=== PATIENT | male | born 1990 | race Caucasian/White ===

== ENCOUNTER 2019-10-23 08:15 | Emergency (ER) | payer OTHER ==
[2019-10-23 09:28] LABS: HEMATOCRIT 43.5 % (37.9-51.0); HEMOGLOBIN 14.7 g/dL (13.5-17.0); MEAN CORPUSCULAR HEMOGLOBIN 29.8 pg (27.0-33.4); MEAN CORPUSCULAR HGB CONC 33.9 g/dL (32.0-36.0); MEAN CORPUSCULAR VOLUME 88 fl (80-97); PLATELET COUNT 371 10^3/uL (150-450); RED BLOOD COUNT 4.95 10^6/uL (4.35-5.55); RED CELL DISTRIBUTION WIDTH 15.7 % (11.5-14.0)
[2019-10-23 09:43] LABS: ALBUMIN 4.4 g/dL (3.5-5.0); ALKALINE PHOSPHATASE 48 U/L (38-126); ANION GAP 10 (5-19); ASPARTATE AMINO TRANSFERASE 54 U/L (17-59); BILIRUBIN,DIRECT 0.1 mg/dL (0.0-0.4); BILIRUBIN,TOTAL 0.9 mg/dL (0.2-1.3); BLOOD UREA NITROGEN 17 mg/dL (7-20); CALCIUM 9.2 mg/dL (8.4-10.2); CARBON DIOXIDE 25 mmol/L (22-30); CHLORIDE 106 mmol/L (98-107); GLUCOSE 100 mg/dL (75-110); POTASSIUM 5.1 mmol/L (3.6-5.0); TOTAL PROTEIN 7.5 g/dL (6.3-8.2)
[2019-10-23 09:46] LABS: APPEARANCE,URINE CLEAR; BILIRUBIN,URINE NEGATIVE (NEGATIVE); COLOR,URINE YELLOW; GLUCOSE, URINE NEGATIVE (NEGATIVE); KETONES,URINE NEGATIVE (NEGATIVE); LEUKOCYTE ESTERASE,URINE NEGATIVE (NEGATIVE); NITRITE,URINE NEGATIVE (NEGATIVE); PROTEIN,URINE NEGATIVE (NEGATIVE); URINE SPECIFIC GRAVITY 1.027; UROBILINOGEN,URINE NEGATIVE mg/dL (<2.0)
[2019-10-23 10:21] LABS: ABSOLUTE LYMPHOCYTES# (MANUAL) 0.5 10^3/uL (0.5-4.7); ABSOLUTE MONOCYTES # (MANUAL) 0.1 10^3/uL (0.1-1.4); BAND NEUTROPHILS % (MANUAL) 3 % (3-5); BASOPHILS % (MANUAL) 0 % (0-2); EOSINOPHILS % (MANUAL) 1 % (0-6); LYMPHOCYTES % (MANUAL) 7 % (13-45); MONOCYTES % (MANUAL) 1 % (3-13); SEGMENTED NEUTROPHILS % (MAN) 88 % (42-78); TOTAL CELLS COUNTED 100
[2019-10-23 10:22] LABS: ANISOCYTOSIS SLIGHT; PLATELET COMMENT ADEQUATE; TOXIC GRANULATION SLIGHT; TOXIC VACUOLATION PRESENT
[2019-10-23] MEDS ORDERED: NORMAL SALINE 1000 ML 1,000 ML IV ONE (10:32)
[2019-10-23] MEDS ORDERED: ONDANSETRON HCL INJ/PF 4 MG/2 ML SDV IV ONE (10:34)
--- NOTE | 2019-10-23 10:39 | ER Document Report ---
ED General - General Chief Complaint: Nausea/Vomiting/Diarrhea Stated Complaint: VOMITING,DIARRHEA Time Seen by Provider: 10/23/19 10:01 Notes: Patient is a 29-year-old white male with a past medical history of H pylori who presents to the emergency department with a chief complaint of nausea, vomiting and diarrhea that began last night. The patient reports after eating 2 corndogs he had an episode of diarrhea. He states he thought that was going to be isolated incident. He states later while sleeping he woke feeling nauseous. States he vomited x2 and then began having diarrhea again. He states the diarrhea is about once per hour since last night. States that it is now watery and yellow in color. He reports his daughter was recently sick with similar symptoms. States she is being seen by the application trainer today. He did recently come off of an airplane flight from within the [facility], no out of the country travel. Denies any possible contamination to any food or water sources. Denies any recent antibiotics or hospitalizations. TRAVEL OUTSIDE OF THE [place] IN LAST 30 DAYS: No - Related Data Allergies/Adverse Reactions: Penicillins Allergy (Verified 10/23/19 08:45) Past Medical History - Social History Smoking Status: Former Smoker Frequency of alcohol use: None Drug Abuse: None Family History: None Patient has suicidal ideation: No Patient has homicidal ideation: No Review of Systems - Review of Systems Gastrointestinal: Diarrhea, Nausea, Vomiting. denies: Abdominal pain -: Yes All other systems reviewed and negative Physical Exam - Vital signs Vitals: Temp Pulse Resp BP Pulse Ox 98.6 F 124 H 18 110/59 L 98 10/23/19 08:23 10/23/19 08:23 10/23/19 08:23 10/23/19 08:23 10/23/19 08:23 - General General appearance: Appears well In distress: None - HEENT Head: Normocephalic, Atraumatic Eyes: Normal, Pale conjunctiva Conjunctiva: Normal Extraocular movements intact: Yes Eyelashes: Normal Pupils: PERRL Ears: Normal External canal: Normal Tympanic membrane: Normal Nasal: Normal Mouth/Lips: Normal Mucous membranes: Normal Pharynx: Normal, Other - Moist mucous membranes Neck: Normal, Supple - Respiratory Respiratory status: No respiratory distress Chest status: Nontender Breath sounds: Normal Chest palpation: Normal - Cardiovascular Rhythm: Regular Heart sounds: Normal auscultation Murmur: No - Abdominal Inspection: Normal Distension: No distension Bowel sounds: Normal Tenderness: Nontender Organomegaly: No organomegaly - Back Back: No: CVA tenderness - Neurological Neuro grossly intact: Yes Cognition: Normal Orientation: AAOx4 [place] Coma Scale Eye Opening: Spontaneous [place] Coma Scale Verbal: Oriented [place] Coma Scale Motor: Obeys Commands [place] Coma Scale Total: 15 Speech: Normal - Skin Skin Temperature: Warm Skin Moisture: Dry Skin Color: Normal Skin Turgor: Elastic Course - Re-evaluation Re-evalutation: 10/23/19 11:45 Reevaluation at this time, patient looks and feels better. States that his nausea has resolved. He has had no episodes of diarrhea here. He is stable and appropriate for discharge and outpatient follow-up. Flu swab was negative. Will send home with prescription for Zofran. Encouraged rest and hydration. Clear liquid diet for the next 24 hours then gradual return via brat diet to regular diet. Discussed with the patient importance of outpatient follow-up and advised that he return here or any ER immediately with any new, persistent or worsening symptoms. He verbalized understood and agreed. - Vital Signs Vital signs: Temp Pulse Resp BP Pulse Ox 98.6 F 100 18 110/59 L 98 10/23/19 08:23 10/23/19 09:18 10/23/19 08:23 10/23/19 08:23 10/23/19 08:23 - Laboratory Result Diagrams: 10/23/19 09:12 10/23/19 09:12 Laboratory results interpreted by me: 10/23/19 10/23/19 09:12 09:12 RDW 15.7 H Seg Neuts % (Manual) 88 H Lymphocytes % (Manual) 7 L Monocytes % (Manual) 1 L Potassium 5.1 H Discharge - Discharge Clinical Impression: Nausea vomiting and diarrhea Disposition: HOME, SELF-CARE Instructions: Antinausea Medication ([facility]), Diarrhea, Nonspecific ([facility]) Additional Instructions: Follow-up with your regular doctor in 2 to 3 days for reevaluation. Return here or any ER immediately with any new, persistent or worsening symptoms. Prescriptions: Ondansetron [Zofran Odt 4 mg Tablet] 1 - 2 tab PO Q8HP PRN #15 tab.rapdis PRN Reason: For Nausea/Vomiting
[2019-10-23 11:34] LABS: A TYPE INFLUENZA AG NEGATIVE (NEGATIVE); B INFLUENZA AG NEGATIVE (NEGATIVE)
[2019-10-23 11:48] VITALS: BP 127/66
== END 2019-10-23 11:55 | disposition home or self-care (01) ==
LOC: ER 08:15
DX: R11.2 Nausea with vomiting, unspecified (principal); R19.7 Diarrhea, unspecified; Z88.0 Allergy status to penicillin; Z87.891 Personal history of nicotine dependence
CPT/HCPCS: 99284; 96361; 96374; 36415; 83690; 85025; 80053; 81001; 87804; J2405; J7030